=== PATIENT | male | born 1980 | race African-American/Black ===

== ENCOUNTER → 2020-06-11 14:39 | Outpatient (CLI) | payer OTHER, MEDICAID, SELFPAY ==
--- NOTE | 2020-06-11 14:46 | DI.RAD.S_ITS ---
PROCEDURE: XR HAND LT MIN 3V INDICATIONS: fall TECHNIQUE: 3 views of the hand(s) acquired. COMPARISON: None. FINDINGS: Bones: No fractures or dislocations. Carpal bones are normally aligned. No suspicious bony lesions. Soft tissues: No suspicious soft tissue calcifications. IMPRESSION: No acute osseous abnormality. Dictated by: Cedric Fuchs M.D. on 06/11/2020 at 14:13 Approved by: Cedric Fuchs M.D. on 06/11/2020 at 14:15
--- NOTE | 2020-06-11 14:46 | DI.RAD.S_ITS ---
PROCEDURE: XR KNEE RT 3V INDICATIONS: fall TECHNIQUE: 3 views of the knee were acquired. COMPARISON: None. FINDINGS: Bones: No fractures or dislocations. No suspicious bony lesions. Soft tissues: No joint effusion. No suspicious soft tissue calcifications. IMPRESSION: No acute osseous abnormality. Dictated by: Cedric Fuchs M.D. on 06/11/2020 at 14:15 Approved by: Cedric Fuchs M.D. on 06/11/2020 at 14:16
== END ==
PROVIDERS: Referring Provider Physician Assistant; Visit Provider Physician Assistant
DX: M25.561 Pain in right knee (principal); M79.642 Pain in left hand
CPT/HCPCS: 73130; 73562

== ENCOUNTER → 2020-06-24 16:35 | Outpatient (CLI) | payer OTHER, MEDICAID, SELFPAY ==
[2020-06-24] MEDS: COVID-19 VACC #1, MRNA(MOD) 100 MCG/0.5 ML VIAL IM (16:52)
== END ==
PROVIDERS: Visit Provider Internal Medicine
DX: Z23 Encounter for immunization (principal)
CPT/HCPCS: 0011A; 91301

== ENCOUNTER → 2020-07-22 14:09 | Outpatient (CLI) | payer OTHER, MEDICAID, SELFPAY ==
[2020-07-22] MEDS: COVID-19 VACC #2, MRNA(MOD) 100 MCG/0.5 ML VIAL IM (14:18)
== END ==
PROVIDERS: Visit Provider Internal Medicine
DX: Z23 Encounter for immunization (principal)
CPT/HCPCS: 0012A; 91301

== ENCOUNTER → 2020-08-03 18:38 | Outpatient (CLI) | payer OTHER, MEDICAID, SELFPAY ==
--- NOTE | 2020-08-03 18:41 | DI.MRI.S_ITS ---
PROCEDURE: MR KNEE RT WO CON INDICATIONS: UNSPECIFIED INTERNAL DERANGEMENT OF RIGHT KNEE TECHNIQUE: Noncontrast sagittal PD fast spin echo and T2 fast spin echo with fat saturation, sagittal 3-D FLASH with fat saturation; coronal T1 spin echo and PD fast spin echo with fat saturation, and axial PD fast spin echo with fat saturation through the knee. COMPARISON: [facility], CR, XR KNEE RT 3V, 06/11/2020, 14:53. FINDINGS: Menisci: Medial meniscus intact. Lateral meniscus intact. Cruciate ligaments: Anterior cruciate ligament appears intact. Posterior cruciate ligament appears intact. Medial structures: The medial collateral ligament appears thickened and T2 hyperintense. There is adjacent mild soft tissue edema. . Semimembranosus tendon appears intact. Visualized portions of the pes anserinus tendons appear normal. No abnormal bursal fluid. Lateral structures: The lateral collateral ligament demonstrates thickening and intrasubstance signal change in keeping with low grade sprain, statistically chronic, although technically age indeterminate. Biceps femoris tendon appears intact. Popliteus tendon grossly unremarkable. Iliotibial band appears intact. Anterior structures: Distal quadriceps tendinopathy and thickening is present. Medial and lateral patellofemoral ligaments intact. There is [id number] patellar tendinopathy. Prepatellar and superficial infrapatellar subcutaneous edema/fluid. Bones and cartilage: Marrow: No focal marrow contusion or discrete low signal fracture line. Medial compartment: No focal cartilage defect. Lateral compartment: Mild diffuse thinning of the femoral cartilage without focal defect. Tibial cartilage appears grossly intact. Patellofemoral compartment: Diffuse partial-thickness loss of the cartilage overlying the medial patellar facet. Femoral trochlear cartilage appears grossly intact. Joint space: No joint effusion. No Clifton's cyst. No specific evidence of intra-articular loose body. IMPRESSION: Medial collateral ligament sprain with adjacent soft tissue edema. No complete rupture Distal quadriceps and diffuse patellar tendinopathy. Mild adjacent fluid/edema Patellofemoral chondromalacia Dictated by: Neal Wade M.D. on 08/04/2020 at 9:27 Approved by: Neal Wade M.D. on 08/04/2020 at 9:31
== END ==
PROVIDERS: Referring Provider Orthopaedic Surgery; Visit Provider Orthopaedic Surgery
DX: M23.91 Unspecified internal derangement of right knee (principal); S83.411A Sprain of medial collateral ligament of right knee, initial encounter; M22.41 Chondromalacia patellae, right knee
CPT/HCPCS: 73721

== ENCOUNTER → 2021-05-14 11:08 | Outpatient (CLI) | payer OTHER, MEDICAID, SELFPAY ==
[2021-05-14 13:12] LABS: Add Manual Diff / Slide Review NO; Basophils Absolute Auto 0 /uL (0-100); Basophils Percent Auto 0.5 % (0-2); Eosinophils Absolute Auto 100 /uL (0-450); Eosinophils Percent Auto 1.6 % (2-4); Hematocrit 44.5 % (41-53); Lymphocytes Absolute Auto 1700 /uL (1100-4500); Lymphocytes Percent Auto 30.9 % (25-40); Mean Corpuscular HGB Conc 33.6 % (30-36); Mean Corpuscular Hemoglobin 26.1 PG (26-34); Mean Corpuscular Volume 77.7 fL (80-100); Monocytes Absolute Auto 400 /uL (0-900); Monocytes Percent Auto 6.4 % (3-14); Neutrophils Absolute Auto 3400 /uL (1500-7000); Neutrophils Percent Auto 60.6 % (50-75); Platelet Count 241 X10^3/uL (150-400); Red Blood Cell Count 5.73 X10^6/uL (4.5-5.9); Red Cell Distribution Width 14.6 % (11.6-14.8); White Blood Cell Count 5.6 X10^3/uL (4.5-11.0)
[2021-05-14 13:41] LABS: Alanine Aminotransferase 79 IU/L (<50); Albumin 4.9 g/dL (3.5-5.0); Albumin Globulin Ratio 1.3 (1.0-2.8); Alkaline Phosphatase 34 U/L (38-126); Aspartate Aminotransferase 53 IU/L (17-59); BUN Creatinine Ratio 11.7 (6-22); Blood Urea Nitrogen 14 mg/dL (9-20); Calcium 10.4 mg/dL (8.4-10.2); Carbon Dioxide 31 mmol/L (22-32); Chloride 103 mmol/L (98-107); Cholesterol 253 mg/dL (140-199); Estimated Glomerular Filt Rate > 60.0 mL/min (>60); Globulin 3.8 g/dL (1.7-4.1); Glucose 95 mg/dL (70-100); HDL Cholesterol 56 mg/dL (40-60); HEMOLYSIS < 15 (0-50); LDL Cholesterol Calculated 179 mg/dL (<100); Potassium 4.3 mmol/L (3.4-5.1); Sodium 142 mmol/L (137-145); Total Protein 8.7 g/dL (6.3-8.2); Triglycerides 91 mg/dL (35-150)
[2021-05-14 14:09] LABS: TSH w/ Reflex to FT4 2.14 uIU/mL (0.47-4.68)
== END ==
PROVIDERS: PCP Family Medicine; Referring Provider Family Medicine; Visit Provider Family Medicine
DX: F32.A Depression, unspecified (principal); F41.9 Anxiety disorder, unspecified; Z68.30 Body mass index [BMI] 30.0-30.9, adult
CPT/HCPCS: 36415; 80053; 80061; 84443; 85025

== ENCOUNTER → 2021-08-14 08:24 | Outpatient (CLI) | payer OTHER, MEDICAID, SELFPAY ==
[2021-08-14 10:44] LABS: Alanine Aminotransferase 27 IU/L (<50); Albumin 4.3 g/dL (3.5-5.0); Albumin Globulin Ratio 1.5 (1.0-2.8); Alkaline Phosphatase 39 U/L (38-126); Aspartate Aminotransferase 30 IU/L (17-59); BUN Creatinine Ratio 19.8 (6-22); Bilirubin Total 0.6 mg/dL (0.2-1.3); Blood Urea Nitrogen 23 mg/dL (9-20); Calcium 9.5 mg/dL (8.4-10.2); Carbon Dioxide 27 mmol/L (22-32); Chloride 107 mmol/L (98-107); Cholesterol 223 mg/dL (140-199); Estimated Glomerular Filt Rate > 60 mL/min (>60); Globulin 2.9 g/dL (1.7-4.1); Glucose 99 mg/dL (70-100); HDL Cholesterol 52 mg/dL (40-60); HEMOLYSIS < 15 (0-50); LDL Cholesterol Calculated 158 mg/dL (<100); Potassium 4.6 mmol/L (3.4-5.1); Sodium 139 mmol/L (137-145); Total Protein 7.2 g/dL (6.3-8.2); Triglycerides 65 mg/dL (35-150)
== END ==
PROVIDERS: PCP Family Medicine; Referring Provider Family Medicine; Visit Provider Family Medicine
DX: E78.5 Hyperlipidemia, unspecified (principal); F32.A Depression, unspecified; F41.9 Anxiety disorder, unspecified; R74.8 Abnormal levels of other serum enzymes
CPT/HCPCS: 36415; 80053; 80061

== ENCOUNTER → 2021-12-28 06:48 | Outpatient (CLI) | payer OTHER, MEDICAID, SELFPAY ==
--- NOTE | 2021-12-28 06:49 | DI.US.S_ITS ---
PROCEDURE: US SCROTUM INDICATIONS: RIGHT SCROTAL LUMP TECHNIQUE: Real-time scanning was performed of the scrotum and testicles, with image documentation. Color and pulse Doppler interrogation was performed of both testicles. COMPARISON: None. FINDINGS: Right: Testicle is normal in size at 4.8 x 1.8 x 3.2 cm, and homogenous in echotexture. Epididymis is normal in overall size. A few cysts are present at the epididymal tail, with this area appearing to correspond to the palpable finding indicated by the patient. The largest cyst measures 1.2 x 0.5 x 1.0 centimeters. No internal vascularity present in this area on Doppler images. No hydrocele or varicoceles. Overlying scrotal skin is normal in thickness. Left: Testicle is normal in size at 5.1 x 2.2 x 2.8 cm, and homogeneous in echotexture. Epididymis is normal in overall size and morphology. A 4 mm epididymal head cyst is present. No hydrocele or varicoceles. Overlying scrotal skin is normal in thickness. Doppler: Color and pulse Doppler demonstrate normal and symmetric arterial flow in both testicles. IMPRESSION: 1. A few cysts are present at the right epididymal tail, largest measuring 1.2 centimeters. This area appears to correspond to the palpable finding indicated by the patient. 2. No testicular mass visualized. Dictated by: Balta Hernández M.D. on 12/28/2021 at 8:55 Approved by: Balta Hernández M.D. on 12/28/2021 at 9:00
== END ==
PROVIDERS: PCP Family Medicine; Referring Provider Family Medicine; Visit Provider Family Medicine
DX: N50.3 Cyst of epididymis (principal); N50.89 Other specified disorders of the male genital organs
CPT/HCPCS: 76870; 93975

== ENCOUNTER → 2022-03-16 12:33 | Outpatient (CLI) | payer OTHER, MEDICAID, SELFPAY ==
--- NOTE | 2022-03-16 12:34 | DI.US.S_ITS ---
PROCEDURE: US SCROTUM INDICATIONS: RIGHT TESTICULAR PAIN 6 DAYS POST VASECTOMY TECHNIQUE: Real-time scanning was performed of the scrotum and testicles, with image documentation. Color and pulse Doppler interrogation was performed of both testicles. COMPARISON: [facility], , US SCROTUM, 12/28/2021, 6:52. FINDINGS: Right: Testicle is normal in size at 4.0 x 2.4 x 2.3 cm, and homogenous in echotexture. Epididymis is normal in overall size and morphology. Cyst within the epididymal tail is redemonstrated. There is a complex appearing hydrocele which measures 2.5 x 1.5 x 3.3 cm. There is no internal vascularity. Some internal septations are present. No varicoceles. Overlying scrotal skin is normal in thickness. Left: Testicle is normal in size at 3.5 x 1.8 x 2.1 cm, and homogeneous in echotexture. Epididymis is normal in overall size and morphology. A simple cyst is present within the left epididymis. No hydrocele or varicoceles. Overlying scrotal skin is normal in thickness. Doppler: Color and pulse Doppler demonstrate normal and symmetric arterial flow in both testicles. IMPRESSION: 1. Complex septated right hydrocele without internal vascularity suspicious for hematoma after recent vasectomy. No increased blood flow to suggest abscess. Dictated by: Shirley Marquez M.D. on 03/16/2022 at 13:29 Approved by: Shirley Marquez M.D. on 03/16/2022 at 13:31
== END ==
PROVIDERS: Family Provider Family Medicine; PCP Family Medicine; Referring Provider Family Medicine; Visit Provider Family Medicine
DX: N43.3 Hydrocele, unspecified (principal); N50.811 Right testicular pain; N50.3 Cyst of epididymis; Z98.52 Vasectomy status
CPT/HCPCS: 76870

== ENCOUNTER 2022-03-25 07:30 | Outpatient (RCR) | payer OTHER, MEDICAID, SELFPAY ==
--- NOTE | 2022-02-16 22:24 | PT.OIE ---
Current Diagnoses Sciatica, left side (02/16/22) Past Medical History (Last Updated 02/01/22 @ 10:09 by Kody Padilla MD) Anxiety and depression BMI 30.0-30.9,adult Epididymal cyst Hyperlipidemia No active medical problems Osteoarthritis of right knee Past Surgical History (Last Reviewed 11/25/21 @ 18:50 by DAO Ocasio) Anesthesia History of colonoscopy History of endoscopy (~2006) Visit Care Team Role Provider Type Kody Padilla MD Attending Provider Physician Family Provider Primary Care Provider Referring Provider Specialty: Family Practice Address: [address] [place] [address] Email: [email or web address] Physical Therapy Initial Evaluation PT-OP-A Visit Information Start: 02/14/22 12:49 Freq: Status: Active Protocol: Document 02/16/22 07:29 AMB (Rec: 02/16/22 08:24 AMB [id number]) Out-Patient Physical Therapy Visit Information Visit Information Visit Type Treatment Note Visit Start Time 07:30 Visit Stop Time 08:15 Total Visit Minutes 45 Visit Number 1 PT-OP-B Current Condition Start: 02/14/22 12:49 Freq: Status: Active Protocol: Document 02/16/22 07:29 AMB (Rec: 02/16/22 08:24 AMB [id number]) Current Condition History of Current Condition Onset Date Months Current Complaints L sciatica History of Current Condition Maninder reports L sided sciatica which he describes as a numb pain in calf and the lateral hip can hurt. If sitting for too long and then stands up can cause some back pain, but mostly concerned about L LE pain. Acupuncture is helping. Months ago he started forefoot running, and did have pain pretty much immediately and that's how it started. Tries to avoid sitting because of the pain. 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 Therapy/Recovery PT-OP-C Subjective Start: 02/14/22 12:49 Freq: Status: Active Protocol: Document 02/16/22 07:30 AMB (Rec: 02/16/22 11:00 AMB [id number]) Patient Questionnaires Oswestry Low Back Index Oswestry Score 24 Oswestry Impairment 20 to 39% Impaired (Score 20- 39) OP-PT Pain Assessment Comments Pain Comments 6/10 at calf, 2/10 at lateral thigh (L) PT-OP-J Posture/Palpation/Skin Start: 02/14/22 12:49 Freq: Status: Active Protocol: Document 02/16/22 07:30 AMB (Rec: 02/16/22 11:00 AMB [id number]) Palpation Assessment Location One Palpation Location lumbar Palpation Details PAs do not increase pt's pain, good spring. Tenderness over piriformis PT-OP-K Range of Motion Start: 02/14/22 12:49 Freq: Status: Active Protocol: Document 02/16/22 07:30 AMB (Rec: 02/16/22 11:00 AMB [id number]) Hip Goniometric Range of Motion Hip Right Passive Testing Position Supine Comments knee extension in 90 degrees hip flexion 145 Left Passive Straight Leg Raise 35 Comments knee extension in 90 degrees hi pflexion 125 PT-OP-L Special Tests Start: 02/14/22 12:49 Freq: Status: Active Protocol: Document 02/16/22 07:30 AMB (Rec: 02/16/22 11:00 AMB [id number]) Special Tests Neural Special Tests- Lower Body Sciatic Nerve Tension Test Results L + Comments ankle dorsiflexion and inversion increases PT-OP-M Strength Start: 02/14/22 12:49 Freq: Status: Active Protocol: Document 02/16/22 07:30 AMB (Rec: 02/16/22 11:01 AMB [id number]) Ankle/Foot Strength Ankle and Foot Manual Muscle Testing Left Comments PF appears equal to R when testing in supine, no increase in pain with resisted PF PT-OP-Q Treatments Start: 02/14/22 12:49 Freq: Status: Active Protocol: Document 02/16/22 07:30 AMB (Rec: 02/16/22 16:06 AMB [id number]) Therapeutic Exercises Supine Exercises sciatic n glide Side left Reps/Minutes 5x20 piriformis stretch Side left Reps/Minutes 30x2 Prone Exercises prone press up Reps/Minutes 10x3 PT-OP-T Assessment and Plan Start: 02/14/22 12:49 Freq: Status: Active Protocol: Document 02/16/22 07:30 AMB (Rec: 02/21/22 22:24 [facility] [id number]) Physical Therapy Assessment Rehab Potential Rehabilitation Potential Good Evaluation Complexity Number of Personal Factors/Comorbidities 0 Number of Body Systems Impaired 1-2 Clinical Presentation at Evaluation Stable Impairments Impairments Activity Tolerance,Functional Activities,Pain,ROM,Strength Goals Three Impairment Exercise Short Term Goal (STG) Maninder will be independent with a HEP to improve his ROM and reduce his pain. STG Duration 6 weeks Custodial Goal (LTG) Maninder will return to exercise (running short distances) without an increase in lower extremity pain. LTG Duration 12 weeks Two Short Term Goal (STG) Maninder will sit for 30 minutes without an increase in pain. STG Duration 6 weeks Custodial Goal (LTG) Maninder will move from sit to stand without an icnrease in pain. LTG Duration 12 weeks One Impairment ROM Short Term Goal (STG) Maninder will increase his L SLR to at least 55 degrees. STG Duration 6 weeks LTG Duration 12 weeks Assessment Summary Assessment Maninder attends physical therapy with slowly improving L LE nerve impingment sx. We were not able to reproduce his sx with lumbar provocations, and he was happy to know that resisted plantarflexion was equal and did not reproduce his pain. However SLR, piriformis stretching and palpation over the sciatic n at the gluteals all reproduced n pain felt in his left calf. He is quite tight and has had to restrict his exercise and his sitting due to his nerve pain. He will benefit from physical therapy to reduce the irritibility of his L LE nerves so that he can perform his work duties, exercise and sit with less pain. Physical Therapy Plan Frequency and Duration Frequency of Treatment 2x/Week Duration of treatment (weeks) 12 Plan of Care Start Date 02/16/22 Plan of Care End Date 05/11/22 Therapeutic Interventions Therapeutic Interventions Aquatic Therapy,Home Exercise Program,Joint Mobilizations, Manual Therapy,Neuromuscular Re-education,Self-Care/Home Management,Therapeutic Activities,Therapeutic Exercises Modalities Cold Pack/Ice Massage,Electric Stimulation,Hot Packs, Ultrasound Next Visit Focus/Plan Next Note Type Treatment Note Next Visit Plan Review HEP: piriformis stretch, sciatic n glide, prone press up
--- NOTE | 2022-02-16 22:25 | PT.OPPOC ---
Physical, Occupational & Speech Therapy At [facility] Current Diagnoses Sciatica, left side (02/16/22) Visit Care Team Role Provider Type Kody Padilla MD Attending Provider Physician Family Provider Primary Care Provider Referring Provider Specialty: Family Practice Address: [address] [place] [address], [id number] Email: [email or web address] Plan Of Care PT-OP-T Assessment and Plan Start: 02/14/22 12:49 Freq: Status: Active Protocol: Document 02/16/22 07:30 AMB (Rec: 02/21/22 22:24 AMB [id number]) Physical Therapy Assessment Rehab Potential Rehabilitation Potential Good Evaluation Complexity Number of Personal Factors/Comorbidities 0 Number of Body Systems Impaired 1-2 Clinical Presentation at Evaluation Stable Impairments Impairments Activity Tolerance,Functional Activities,Pain,ROM,Strength Goals Three Impairment Exercise Short Term Goal (STG) Maninder will be independent with a HEP to improve his ROM and reduce his pain. STG Duration 6 weeks Prison Goal (LTG) Maninder will return to exercise (running short distances) without an increase in lower extremity pain. LTG Duration 12 weeks Two Short Term Goal (STG) Maninder will sit for 30 minutes without an increase in pain. STG Duration 6 weeks Prison Goal (LTG) Maninder will move from sit to stand without an icnrease in pain. LTG Duration 12 weeks One Impairment ROM Short Term Goal (STG) Maninder will increase his L SLR to at least 55 degrees. STG Duration 6 weeks LTG Duration 12 weeks Assessment Summary Assessment Maninder attends physical therapy with slowly improving L LE nerve impingment sx. We were not able to reproduce his sx with lumbar provocations, and he was happy to know that resisted plantarflexion was equal and did not reproduce his pain. However SLR, piriformis stretching and palpation over the sciatic n at the gluteals all reproduced n pain felt in his left calf. He is quite tight and has had to restrict his exercise and his sitting due to his nerve pain. He will benefit from physical therapy to reduce the irritibility of his L LE nerves so that he can perform his work duties, exercise and sit with less pain. Physical Therapy Plan Frequency and Duration Frequency of Treatment 2x/Week Duration of treatment (weeks) 12 Plan of Care Start Date 02/16/22 Plan of Care End Date 05/11/22 Therapeutic Interventions Therapeutic Interventions Aquatic Therapy,Home Exercise Program,Joint Mobilizations, Manual Therapy,Neuromuscular Re-education,Self-Care/Home Management,Therapeutic Activities,Therapeutic Exercises Modalities Cold Pack/Ice Massage,Electric Stimulation,Hot Packs, Ultrasound Next Visit Focus/Plan Next Note Type Treatment Note Next Visit Plan Review HEP: piriformis stretch, sciatic n glide, prone press up Plan of Care Dates Plan of Care Start Date 02/16/22 Plan of Care End Date 05/11/22 Electronically Signed by: Princess Hein, PT 02/21/22 [id number] If you are in agreement with this Plan of Care, please return a signed and dated copy. I have reviewed this Plan of Care and certify that the skilled therapy services above are required to meet the patient?s needs. Physician Signature Date Printed Name and Credentials Clinical Instructor Signature Printed Name and Credentials
--- NOTE | 2022-03-01 11:16 | PT.OTN ---
Current Diagnoses Sciatica, left side (03/01/22) Physical Therapy Treatment Note PT-OP-A Visit Information Start: 02/14/22 12:49 Freq: Status: Active Protocol: Document 03/01/22 07:32 AMB (Rec: 03/01/22 08:25 AMB [id number]) Out-Patient Physical Therapy Visit Information Visit Information Visit Type Treatment Note Visit Start Time 07:30 Visit Stop Time 08:15 Total Visit Minutes 45 Visit Number 2 PT-OP-B Current Condition Start: 02/14/22 12:49 Freq: Status: Active Protocol: Document 02/16/22 07:29 AMB (Rec: 02/16/22 08:24 AMB [id number]) Current Condition History of Current Condition Onset Date Months Current Complaints L sciatica History of Current Condition Maninder reports L sided sciatica which he describes as a numb pain in calf and the lateral hip can hurt. If sitting for too long and then stands up can cause some back pain, but mostly concerned about L LE pain. Acupuncture is helping. Months ago he started forefoot running, and did have pain pretty much immediately and that's how it started. Tries to avoid sitting because of the pain. 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 Tenderness over piriformis PT-OP-K Range of Motion Start: 02/14/22 12:49 Freq: Status: Active Protocol: Document 02/16/22 07:30 AMB (Rec: 02/16/22 11:00 AMB [id number]) Hip Goniometric Range of Motion Hip Right Passive Testing Position Supine Comments knee extension in 90 degrees hip flexion 145 Left Passive Straight Leg Raise 35 Comments knee extension in 90 degrees hi pflexion 125 PT-OP-L Special Tests Start: 02/14/22 12:49 Freq: Status: Active Protocol: Document 02/16/22 07:30 AMB (Rec: 02/16/22 11:00 AMB [id number]) Special Tests Neural Special Tests- Lower Body Sciatic Nerve Tension Test Results L + Comments ankle dorsiflexion and inversion increases PT-OP-M Strength Start: 02/14/22 12:49 Freq: Status: Active Protocol: Document 02/16/22 07:30 AMB (Rec: 02/16/22 11:01 AMB [id number]) Ankle/Foot Strength Ankle and Foot Manual Muscle Testing Left Comments PF appears equal to R when testing in supine, no increase in pain with resisted PF PT-OP-Q Treatments Start: 02/14/22 12:49 Freq: Status: Active Protocol: Document 03/01/22 07:32 AMB (Rec: 03/01/22 08:25 AMB [id number]) Therapeutic Exercises Supine Exercises sciatic n glide Side left Reps/Minutes 5x20 piriformis stretch Side left Reps/Minutes 30x2 Prone Exercises prone press up Reps/Minutes 10x3 Sidelying Exercises hip abd Reps/Minutes 2x10 Standing Exercises hamstring stretch Reps/Minutes 30x2 Comments stair calf stretch Standing Exercise Name on LUZMARIA Reps/Minutes 30x2 Other Exercises cat cow Reps/Minutes 10 Comments better ppt than anterior pelvic tilt linwood pose Reps/Minutes 30x2 quadruped Other Exercise Name UE/LE extension Reps/Minutes 2x10 Comments cued lumbar neutral Neuro Re-Education Treatment Balance Activities Balance board Reps/Duration 1 min PT-OP-T Assessment and Plan Start: 02/14/22 12:49 Freq: Status: Active Protocol: Document 03/01/22 07:30 AMB (Rec: 03/01/22 11:16 AMB [id number]) Physical Therapy Assessment Goals Three Impairment Exercise Short Term Goal (STG) Maninder will be independent with a HEP to improve his ROM and reduce his pain. STG Duration 6 weeks Longterm Goal (LTG) Maninder will return to exercise (running short distances) without an increase in lower extremity pain. LTG Duration 12 weeks Two Short Term Goal (STG) Maninder will sit for 30 minutes without an increase in pain. STG Duration 6 weeks Sandwich Wrapper Goal (LTG) Maninder will move from sit to stand without an icnrease in pain. LTG Duration 12 weeks One Impairment ROM Short Term Goal (STG) Maninder will increase his L SLR to at least 55 degrees. STG Duration 6 weeks LTG Duration 12 weeks Assessment Summary Assessment Maninder continues to have pain when he has been sitting and then tries to stand up from a seated position. Discussed body mechanics of work situation. 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 Discussed return to exercise progression, waiting on running for now to avoid flare . Physical Therapy Plan Frequency and Duration Frequency of Treatment 2x/Week Duration of treatment (weeks) 12 Plan of Care Start Date 02/16/22 Plan of Care End Date 05/11/22 Therapeutic Interventions Therapeutic Interventions Aquatic Therapy,Home Exercise Program,Joint Mobilizations, Manual Therapy,Neuromuscular Re-education,Self-Care/Home Management,Therapeutic Activities,Therapeutic Exercises Modalities Cold Pack/Ice Massage,Electric Stimulation,Hot Packs, Ultrasound Next Visit Focus/Plan Next Note Type Treatment Note Next Visit Plan Review HEP: piriformis stretch, sciatic n glide, prone press up
--- NOTE | 2022-03-08 10:25 | PT.OTN ---
Current Diagnoses Sciatica, left side (03/08/22) Physical Therapy Treatment Note PT-OP-A Visit Information Start: 02/14/22 12:49 Freq: Status: Active Protocol: Document 03/08/22 07:28 AMB (Rec: 03/08/22 08:21 AMB [id number]) Out-Patient Physical Therapy Visit Information Visit Information Visit Type Treatment Note Visit Start Time 07:30 Visit Stop Time 08:15 Total Visit Minutes 45 Visit Number 3 PT-OP-B Current Condition Start: 02/14/22 12:49 Freq: Status: Active Protocol: Document 02/16/22 07:29 AMB (Rec: 02/16/22 08:24 AMB [id number]) Current Condition History of Current Condition Onset Date Months Current Complaints L sciatica History of Current Condition Maninder reports L sided sciatica which he describes as a numb pain in calf and the lateral hip can hurt. If sitting for too long and then stands up can cause some back pain, but mostly concerned about L LE pain. Acupuncture is helping. Months ago he started forefoot running, and did have pain pretty much immediately and that's how it started. Tries to avoid sitting because of the pain. 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 PT-OP-J Posture/Palpation/Skin Start: 02/14/22 12:49 Freq: Status: Active Protocol: Document 02/16/22 07:30 AMB (Rec: 02/16/22 11:00 AMB [id number]) Palpation Assessment Location One Palpation Location lumbar Palpation Details PAs do not increase pt's pain, good spring. Tenderness over piriformis PT-OP-K Range of Motion Start: 02/14/22 12:49 Freq: Status: Active Protocol: Document 02/16/22 07:30 AMB (Rec: 02/16/22 11:00 AMB [id number]) Hip Goniometric Range of Motion Hip Right Passive Testing Position Supine Comments knee extension in 90 degrees hip flexion 145 Left Passive Straight Leg Raise 35 Comments knee extension in 90 degrees hi pflexion 125 PT-OP-L Special Tests Start: 02/14/22 12:49 Freq: Status: Active Protocol: Document 02/16/22 07:30 AMB (Rec: 02/16/22 11:00 AMB [id number]) Special Tests Neural Special Tests- Lower Body Sciatic Nerve Tension Test Results L + Comments ankle dorsiflexion and inversion increases PT-OP-M Strength Start: 02/14/22 12:49 Freq: Status: Active Protocol: Document 02/16/22 07:30 AMB (Rec: 02/16/22 11:01 AMB [id number]) Ankle/Foot Strength Ankle and Foot Manual Muscle Testing Left Comments PF appears equal to R when testing in supine, no increase in pain with resisted PF PT-OP-Q Treatments Start: 02/14/22 12:49 Freq: Status: Active Protocol: Document 03/08/22 07:28 AMB (Rec: 03/08/22 08:21 AMB [id number]) Gym Equipment Shuttle Recovery Unilateral Squats Details 50 (L) Shuttle Recovery Platform Unstable Bilateral Squats Details 100 Shuttle Recovery Platform Stable Reps/Time 2x10 Therapeutic Exercises Supine Exercises IT band stretch Supine Exercise Name band Reps/Minutes 2x10 sciatic n glide Side left Reps/Minutes 5x20 piriformis stretch Side left Reps/Minutes 30x2 Sitting Exercises BAPS board Sitting Exercise Name L foot Reps/Minutes 2x10 Comments circles PT-OP-T Assessment and Plan Start: 02/14/22 12:49 Freq: Status: Active Protocol: Document 03/08/22 07:28 AMB (Rec: 03/08/22 08:21 AMB [id number]) Physical Therapy Assessment Goals Three Impairment Exercise Short Term Goal (STG) Maninder will be independent with a HEP to improve his ROM and reduce his pain. STG Duration 6 weeks Fire Watcher Goal (LTG) Maninder will return to exercise (running short distances) without an increase in lower extremity pain. LTG Duration 12 weeks Two Short Term Goal (STG) Maninder will sit for 30 minutes without an increase in pain. STG Duration 6 weeks Fire Watcher Goal (LTG) Maninder will move from sit to stand without an icnrease in pain. LTG Duration 12 weeks One Impairment ROM Short Term Goal (STG) Maninder will increase his L SLR to at least 55 degrees. STG Duration 6 weeks LTG Duration 12 weeks Assessment Summary Assessment Maninder felt a good stretch with 3 way hamstring/IT band stretch. Feeling more sx in lateral ankle, overall feeling better is returning to the gym but gently. Did have mild sx after leg press here. Physical Therapy Plan Frequency and Duration Frequency of Treatment 2x/Week Duration of treatment (weeks) 12 Plan of Care Start Date 02/16/22 Plan of Care End Date 05/11/22 Therapeutic Interventions Therapeutic Interventions Aquatic Therapy,Home Exercise Program,Joint Mobilizations, Manual Therapy,Neuromuscular Re-education,Self-Care/Home Management,Therapeutic Activities,Therapeutic Exercises Modalities Cold Pack/Ice Massage,Electric Stimulation,Hot Packs, Ultrasound Next Visit Focus/Plan Next Note Type Treatment Note Next Visit Plan Review HEP: piriformis stretch, sciatic n glide, prone press up
--- NOTE | 2022-03-22 08:20 | PT.OTN ---
Current Diagnoses Sciatica, left side (03/22/22) Physical Therapy Treatment Note PT-OP-A Visit Information Start: 02/14/22 12:49 Freq: Status: Active Protocol: Document 03/22/22 07:28 SP (Rec: 03/22/22 08:21 SP [id number]) Out-Patient Physical Therapy Visit Information Visit Information Visit Type Treatment Note Visit Start Time 07:30 Visit Stop Time 08:20 Total Visit Minutes 50 Visit Number 4 Number of BULB BRANDER Visits 1 PT-OP-B Current Condition Start: 02/14/22 12:49 Freq: Status: Active Protocol: Document 02/16/22 07:29 AMB (Rec: 02/16/22 08:24 AMB [id number]) Current Condition History of Current Condition Onset Date Months Current Complaints L sciatica History of Current Condition Maninder reports L sided sciatica which he describes as a numb pain in calf and the lateral hip can hurt. If sitting for too long and then stands up can cause some back pain, but mostly concerned about L LE pain. Acupuncture is helping. Months ago he started forefoot running, and did have pain pretty much immediately and that's how it started. Tries to avoid sitting because of the pain. 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 But if sits in a chair with edge mid posterior thigh that (wood home chair) within some time puts pressure (more legs dangling than not) and deadens leg eventually and can get cramp in posterior thigh. Is mindful of sitting in fully supported femurs. Pt did have a vasectomy since last tx and still having inflammation more R>L. He feels might only need the next appt and potentially DC from PT next tx with PT. He did also see aviation tactical readiness officer as well with PT and feels that has also been an source of progress. Is able to squat with UE supported. PT-OP-J Posture/Palpation/Skin Start: 02/14/22 12:49 Freq: Status: Active Protocol: Document 02/16/22 07:30 AMB (Rec: 02/16/22 11:00 AMB [id number]) Palpation Assessment Location One Palpation Location lumbar Palpation Details PAs do not increase pt's pain, good spring. Tenderness over piriformis PT-OP-K Range of Motion Start: 02/14/22 12:49 Freq: Status: Active Protocol: Document 02/16/22 07:30 AMB (Rec: 02/16/22 11:00 AMB [id number]) Hip Goniometric Range of Motion Hip Right Passive Testing Position Supine Comments knee extension in 90 degrees hip flexion 145 Left Passive Straight Leg Raise 35 Comments knee extension in 90 degrees hi pflexion 125 PT-OP-L Special Tests Start: 02/14/22 12:49 Freq: Status: Active Protocol: Document 02/16/22 07:30 AMB (Rec: 02/16/22 11:00 AMB [id number]) Special Tests Neural Special Tests- Lower Body Sciatic Nerve Tension Test Results L + Comments ankle dorsiflexion and inversion increases PT-OP-M Strength Start: 02/14/22 12:49 Freq: Status: Active Protocol: Document 02/16/22 07:30 AMB (Rec: 02/16/22 11:01 AMB [id number]) Ankle/Foot Strength Ankle and Foot Manual Muscle Testing Left Comments PF appears equal to R when testing in supine, no increase in pain with resisted PF PT-OP-Q Treatments Start: 02/14/22 12:49 Freq: Status: Active Protocol: Document 03/22/22 07:28 SP (Rec: 03/22/22 08:21 SP [id number]) Therapeutic Exercises Supine Exercises IT band stretch Supine Exercise Name band Reps/Minutes 2x10 Comments unable to do at moment dueto vasectomy recovery sciatic n glide Side left Reps/Minutes 5x20 Comments feels normal piriformis stretch Side left Reps/Minutes 30x2 Sidelying Exercises hip abd Sidelying Exercise Name reviewed- good form Resistance AROM Reps/Minutes 2x10 Comments good form easy Standing Exercises squat mechanics Standing Exercise Name improved hip hinge, knees behind toe Equipment Used air squat, discussed facing wall mini and progress. Comments can squat all way floor but BUEs out front, board under heels better/hipsbk standing self STMs\ Standing Exercise Name discussed but not performed band walk Standing Exercise Name added to HEP: f/b/lateral Resistance TB #3 loop at ankles Equipment Used near rail, not needed Reps/Minutes 10 ft x3 laps Comments cued tall posture, soft knee, neutral pelvis RDL Standing Exercise Name added to HEP: hip abd/core fac , form for back health Side bilateral Reps/Minutes x10 Comments Cued straight back, hip hinge, space between BLEs- improved mechanics Resisted shld ext Standing Exercise Name added to HEP Resistance Tb #3+#4 Reps/Minutes 2x10 reps Comments cued tall posture core fac, better facilitation with increase resistance calf stretch Standing Exercise Name on LUZMARIA Reps/Minutes 30x2 Self-Care/Home Management Treatment Education Patient Education Body Mechanics,Pain Management ,Posture,Safety Other Education Extra time spent lifting mechanics at gym with allowable ankle/hip/back ROM/ flexibility and safe resistance. May need to put plate under heels for now. Also suggested site Knees Over Toes AROM to start progress increase flexibility if deciding to DC to own HEP next tx. PT-OP-T Assessment and Plan Start: 02/14/22 12:49 Freq: Status: Active Protocol: Document 03/22/22 07:28 SP (Rec: 03/22/22 08:21 SP [id number]) Physical Therapy Assessment Goals Three Impairment Exercise Short Term Goal (STG) Maninder will be independent with a HEP to improve his ROM and reduce his pain. 03/22/22: added RDL, band walk , resisted band walk, calf stretches, review supine stretching. Time spent lifting mechanics at gym for back health and discussion may have decreased ROM ankles/hips/ back tight. STG Duration 6 weeks progressing 03/22/22 Rn Community Goal (LTG) Maninder will return to exercise (running short distances) without an increase in lower extremity pain. 03/22/22: progressing: did do a little jog to go help someone and no feeling L leg was going to give out and hop off something and pivot on L leg and didn't give out. Otherwise hasn't done any since vasectomy procedure . LTG Duration 12 weeks progressin03/22/22 Two Short Term Goal (STG) Maninder will sit for 30 minutes without an increase in pain. 03/22/22: MET GOAL: can sit in chair and fall asleep with pain. STG Duration MET goal Rn Community Goal (LTG) Maninder will move from sit to stand without an icnrease in pain. 03/22/22: MET GOAL: painfree STS. LTG Duration MET GOAL One Impairment ROM Short Term Goal (STG) Maninder will increase his L SLR to at least 55 degrees. 03/22/22: LLE 85 deg, RLE 75 deg STG Duration MET GOAL LTG Duration 12 weeks Progress Towards Goals Progress Towards Goals Progressing Toward Goals Progress Comments MET GOAL: STGs #1 and STG/ LTG #2. Assessment Summary Assessment Pt improved decrease pain in LLE with activities. Has been limited in HEP due to recovering vasectomy procedure . Improved/ responded well to stretching review, core/hip abd strengthening added: band walk, RDL, resisted shld ext this tx and gym lifting mechanics for back health. Physical Therapy Plan Frequency and Duration Frequency of Treatment 2x/Week Duration of treatment (weeks) 12 Plan of Care Start Date 02/16/22 Plan of Care End Date 05/11/22 Therapeutic Interventions Therapeutic Interventions Aquatic Therapy,Home Exercise Program,Joint Mobilizations, Manual Therapy,Neuromuscular Re-education,Self-Care/Home Management,Therapeutic Activities,Therapeutic Exercises Modalities Cold Pack/Ice Massage,Electric Stimulation,Hot Packs, Ultrasound Next Visit Focus/Plan Next Note Type Treatment Note Next Visit Plan Discuss more appts vs self HEP home? Recheck new HEP: RDL, band walk, check mechanics lifting, core resisted shld ext and add any progression. Strethching HEP: piriformis stretch, sciatic n glide, recheck prone press up
--- NOTE | 2022-03-25 08:08 | PT.OTN ---
Current Diagnoses Sciatica, left side (03/25/22) Physical Therapy Treatment Note PT-OP-A Visit Information Start: 02/14/22 12:49 Freq: Status: Active Protocol: Document 03/25/22 07:32 AMB (Rec: 03/25/22 08:07 AMB [id number]) Out-Patient Physical Therapy Visit Information Visit Information Visit Type Treatment Note Visit Start Time 07:30 Visit Stop Time 08:20 Total Visit Minutes 50 Visit Number 5 PT-OP-B Current Condition Start: 02/14/22 12:49 Freq: Status: Active Protocol: Document 02/16/22 07:29 AMB (Rec: 02/16/22 08:24 AMB [id number]) Current Condition History of Current Condition Onset Date Months Current Complaints L sciatica History of Current Condition Maninder reports L sided sciatica which he describes as a numb pain in calf and the lateral hip can hurt. If sitting for too long and then stands up can cause some back pain, but mostly concerned about L LE pain. Acupuncture is helping. Months ago he started forefoot running, and did have pain pretty much immediately and that's how it started. Tries to avoid sitting because of the pain. 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 Tenderness over piriformis PT-OP-K Range of Motion Start: 02/14/22 12:49 Freq: Status: Active Protocol: Document 02/16/22 07:30 AMB (Rec: 02/16/22 11:00 AMB [id number]) Hip Goniometric Range of Motion Hip Right Passive Testing Position Supine Comments knee extension in 90 degrees hip flexion 145 Left Passive Straight Leg Raise 35 Comments knee extension in 90 degrees hi pflexion 125 PT-OP-L Special Tests Start: 02/14/22 12:49 Freq: Status: Active Protocol: Document 02/16/22 07:30 AMB (Rec: 02/16/22 11:00 AMB [id number]) Special Tests Neural Special Tests- Lower Body Sciatic Nerve Tension Test Results L + Comments ankle dorsiflexion and inversion increases PT-OP-M Strength Start: 02/14/22 12:49 Freq: Status: Active Protocol: Document 02/16/22 07:30 AMB (Rec: 02/16/22 11:01 AMB [id number]) Ankle/Foot Strength Ankle and Foot Manual Muscle Testing Left Comments PF appears equal to R when testing in supine, no increase in pain with resisted PF PT-OP-Q Treatments Start: 02/14/22 12:49 Freq: Status: Active Protocol: Document 03/25/22 07:32 AMB (Rec: 03/25/22 08:07 AMB [id number]) Therapeutic Exercises Standing Exercises squat mechanics Standing Exercise Name improved hip hinge, knees behind toe Equipment Used 10#, discussed facing wall mini and progress. Comments can squat all way floor but BUEs out front, board under heels better/hipsbk RDL Standing Exercise Name added to HEP: hip abd/core fac , form for back health Side bilateral Reps/Minutes x10, Comments Cued straight back, hip hinge, space between BLEs- improved mechanics calf stretch Standing Exercise Name on LUZMARIA Reps/Minutes 30x2 PT-OP-T Assessment and Plan Start: 02/14/22 12:49 Freq: Status: Active Protocol: Document 03/25/22 07:32 AMB (Rec: 03/25/22 08:07 AMB [id number]) Physical Therapy Assessment Goals Three Impairment Exercise Short Term Goal (STG) Maninder will be independent with a HEP to improve his ROM and reduce his pain. 03/22/22: added RDL, band walk , resisted band walk, calf stretches, review supine stretching. Time spent lifting mechanics at gym for back health and discussion may have decreased ROM ankles/hips/ back tight. STG Duration 6 weeks progressing 03/22/22 Ordering Machine Operator Goal (LTG) Maninder will return to exercise (running short distances) without an increase in lower extremity pain. 03/22/22: progressing: did do a little jog to go help someone and no feeling L leg was going to give out and hop off something and pivot on L leg and didn't give out. Otherwise hasn't done any since vasectomy procedure . LTG Duration 12 weeks progressin03/22/22 Two Short Term Goal (STG) Maninder will sit for 30 minutes without an increase in pain. 03/22/22: MET GOAL: can sit in chair and fall asleep with pain. STG Duration MET goal Ordering Machine Operator Goal (LTG) Maninder will move from sit to stand without an icnrease in pain. 03/22/22: MET GOAL: painfree STS. LTG Duration MET GOAL One Impairment ROM Short Term Goal (STG) Maninder will increase his L SLR to at least 55 degrees. 03/22/22: LLE 85 deg, RLE 75 deg STG Duration MET GOAL Assessment Summary Assessment Maninder feels ready for discharge. He is able to work and sit without the radiating back pain he was previously having. He has not yet returned to running or the gym , but extensive time spent today with discussion of how to return to running gym exercise. Physical Therapy Plan Frequency and Duration Duration of treatment (weeks) 12 Plan of Care Start Date 02/16/22 Plan of Care End Date 05/11/22 Therapeutic Interventions Therapeutic Interventions Aquatic Therapy,Home Exercise Program,Joint Mobilizations, Manual Therapy,Neuromuscular Re-education,Self-Care/Home Management,Therapeutic Activities,Therapeutic Exercises Modalities Cold Pack/Ice Massage,Electric Stimulation,Hot Packs, Ultrasound Discharge Physical Therapy Discharge Reasons Goals Met
== END 2022-04-05 09:09 | disposition home or self-care (01) ==
LOC: PHYS 07:30
PROVIDERS: Family Provider Family Medicine; PCP Family Medicine; Referring Provider Family Medicine; Visit Provider Family Medicine
DX: M54.32 Sciatica, left side (principal)
CPT/HCPCS: 97110; 97161; 97535

== ENCOUNTER → 2022-05-17 13:35 | Outpatient (CLI) | payer OTHER, MEDICAID, SELFPAY ==
[2022-05-17 14:40] LABS: Semen Sperm Prescence Post-Vas Absent (ABSENT)
== END ==
PROVIDERS: Family Provider Family Medicine; PCP Family Medicine; Referring Provider Family Medicine; Visit Provider Family Medicine
DX: N50.3 Cyst of epididymis (principal); Z30.2 Encounter for sterilization
CPT/HCPCS: 89321

== ENCOUNTER → 2023-04-07 08:26 | Outpatient (CLI) | payer OTHER, SELFPAY ==
[2023-04-07 08:40] LABS: Add Manual Diff / Slide Review NO; Basophils Absolute Auto 0 /uL (0-100); Basophils Percent Auto 0.6 % (0-2); Eosinophils Absolute Auto 200 /uL (0-450); Eosinophils Percent Auto 3.2 % (2-4); Hematocrit 42.3 % (41-53); Lymphocytes Absolute Auto 1300 /uL (1100-4500); Mean Corpuscular HGB Conc 33.1 % (30-36); Mean Corpuscular Hemoglobin 26.5 PG (26-34); Mean Corpuscular Volume 80.1 fL (80-100); Monocytes Absolute Auto 400 /uL (0-900); Monocytes Percent Auto 7.5 % (3-14); Neutrophils Absolute Auto 3000 /uL (1500-7000); Neutrophils Percent Auto 61.7 % (50-75); Platelet Count 223 X10^3/uL (150-400); Red Blood Cell Count 5.28 X10^6/uL (4.5-5.9); Red Cell Distribution Width 14.4 % (11.6-14.8); White Blood Cell Count 4.8 X10^3/uL (4.5-11.0)
[2023-04-07 09:05] LABS: Alanine Aminotransferase 30 IU/L (<50); Albumin 4.4 g/dL (3.5-5.0); Albumin Globulin Ratio 1.2 (1.0-2.8); Alkaline Phosphatase 36 U/L (38-126); Aspartate Aminotransferase 41 IU/L (17-59); BUN Creatinine Ratio 10.3 (6-22); Bilirubin Total 0.9 mg/dL (0.2-1.3); Blood Urea Nitrogen 12 mg/dL (9-20); Carbon Dioxide 32 mmol/L (22-32); Chloride 104 mmol/L (98-107); Cholesterol 236 mg/dL (140-199); Estimated Glomerular Filt Rate > 60 mL/min (>60); Globulin 3.8 g/dL (1.7-4.1); Glucose 105 mg/dL (70-100); HDL Cholesterol 55 mg/dL (40-60); HEMOLYSIS < 15 (0-50); LDL Cholesterol Calculated 169 mg/dL (<100); Potassium 4.6 mmol/L (3.4-5.1); Sodium 140 mmol/L (137-145); Total Protein 8.2 g/dL (6.3-8.2); Triglycerides 60 mg/dL (35-150)
[2023-04-07 09:43] LABS: TSH w/ Reflex to FT4 2.02 uIU/mL (0.47-4.68)
[2023-04-07 09:51] LABS: Vitamin B12 627 pg/mL (239-931)
== END ==
PROVIDERS: Family Provider Family Medicine; PCP Family Medicine; Referring Provider Family Medicine; Visit Provider Family Medicine
DX: E78.5 Hyperlipidemia, unspecified (principal); M54.30 Sciatica, unspecified side; F41.9 Anxiety disorder, unspecified; F32.A Depression, unspecified; Z68.30 Body mass index [BMI] 30.0-30.9, adult; Z00.00 Encounter for general adult medical examination without abnormal findings
CPT/HCPCS: 36415; 80053; 80061; 82607; 84443; 85025

== ENCOUNTER → 2023-05-02 16:37 | Outpatient (CLI) | payer OTHER, SELFPAY ==
--- NOTE | 2023-05-02 16:39 | DI.RAD.S_ITS ---
PROCEDURE: XR CERVICAL SPINE 2V OR 3V INDICATIONS: neck pain TECHNIQUE: 3 view(s) of the cervical spine were acquired. COMPARISON: None. FINDINGS: Bones: No fractures or dislocations to the T1 level. There is straightening of normal cervical lordosis. Degenerative endplate changes are noted at C6-7 level. The lateral masses of C1 appear intact on the odontoid view. No suspicious bony lesions. Soft tissues: No prevertebral soft tissue swelling. IMPRESSION: Degenerative disc disease at C6-7 level. No acute fracture or dislocation. Straightening of normal cervical lordosis which could represent muscle spasm. Dictated by: Carlos Cadet M.D. on 05/02/2023 at 17:13 Approved by: Carlos Cadet M.D. on 05/02/2023 at 17:14
--- NOTE | 2023-05-02 16:39 | DI.RAD.S_ITS ---
PROCEDURE: XR HAND LT MIN 3V INDICATIONS: thumb and index finger trauma TECHNIQUE: 3 views of the hand(s) acquired. COMPARISON: [facility], CR, XR HAND LT MIN 3V, 06/11/2020, 14:53. FINDINGS: Bones: No fractures or dislocations. Carpal bones are normally aligned. No suspicious bony lesions. Soft tissues: No suspicious soft tissue calcifications. IMPRESSION: No acute left hand fracture or dislocation. Dictated by: Carlos Cadet M.D. on 05/02/2023 at 17:13 Approved by: Carlos Cadet M.D. on 05/02/2023 at 17:13
== END ==
PROVIDERS: Family Provider Family Medicine; PCP Family Medicine; Referring Provider Family Medicine; Visit Provider Family Medicine
DX: M50.323 Other cervical disc degeneration at C6-C7 level (principal); M79.645 Pain in left finger(s); M79.642 Pain in left hand; E78.5 Hyperlipidemia, unspecified
CPT/HCPCS: 72040; 73130

== ENCOUNTER → 2023-05-15 07:42 | Outpatient (CLI) | payer OTHER, SELFPAY ==
--- NOTE | 2023-05-16 14:47 | DI.NM.S_ITS ---
DATE OF SERVICE: 05/15/2023 PROCEDURE: Exercise stress test. INDICATIONS: Chest pain. CARDIAC STRESS: The patient underwent exercise stress test under the supervision of an attending staff. The patient walked on Yousif protocol for 12 minutes and achieved 12.8 METS of workload, RYAN -3%, 96% of target heart rate with maximum heart rate 169. Normal blood pressure response. Resting blood pressure 122/80 and peak blood pressure 187/78 mmHg. Baseline rhythm sinus. During stress, no convincing ischemic changes seen. Rare PVCs. No chest pain or anginal symptoms. The patient felt some fatigue and shortness of breath. CONCLUSION: Exercise stress test is negative for inducible ischemia. Good exercise tolerance. Normal hemodynamic response. No significant arrhythmias or anginal symptoms. Overall, low-risk exercise stress test. Jaswant Maninder - DIPESH/jayme/MILTON doc#: [id number]/job#: [id number] dd: 05/15/2023 17:08:00 dt: 05/15/2023 22:15:00 DICTATING /COPIES TO: Coy Davidson MD COPIES MNE: INOCENCIO;
== END ==
PROVIDERS: Family Provider Family Medicine; PCP Family Medicine; Referring Provider Family Medicine; Visit Provider Family Medicine
DX: R00.2 Palpitations (principal)
CPT/HCPCS: 93005; 93017

== ENCOUNTER → 2023-05-25 06:43 | Outpatient (CLI) | payer OTHER, SELFPAY ==
--- NOTE | 2023-05-25 06:43 | DI.ECHO.S_ITS ---
[facility] +---------+ : : [address] [facility] : : : : [id number] : : : : Phone: [phone]+ Echocardiogram Report + + :Name: HOWIE NELSON Study Date: 05/25/2023 Height: 71 in : :[facility] ReadingLocation: Weight: 220 lb : : Gender: Male BSA: 2.2 m2 : :: 1980 Age: 42 yrs BP: 133/87 mmHg: :Reason For Study: EXERTIONAL CHEST PAIN : :Ordering Physician: PATITO, : :MELANIE Performed By: Karan Esqueda : :Referring: MELANIE CAPUTO : + + Interpretation Summary The ejection fraction is estimated to be 60-65%. Left ventricular wall motion is normal. There is no significant valvular heart disease. Procedure: A two-dimensional transthoracic echocardiogram with color flow and Doppler was performed. The study quality was technically adequate. There is no prior echocardiogram noted for this patient. The patient was in normal sinus rhythm during the exam. The heart rate ranged between 74-84 bpm during the study. Left Ventricle: The left ventricle is normal in size and wall thickness. The ejection fraction is estimated to be 60-65%. Left ventricular wall motion is normal. Right Ventricle: The right ventricle is normal in size and function. The right ventricular systolic function is normal. Atria: The left atrial size is normal. Right atrial size is normal. Mitral Valve: The mitral valve is normal in structure and function. There is no mitral valve stenosis. There is no mitral regurgitation noted. Aortic Valve: The aortic valve is trileaflet. There is no aortic valve stenosis. No aortic regurgitation is present. Tricuspid Valve: The tricuspid valve is normal in structure and function. There is no tricuspid stenosis. There is trace tricuspid regurgitation. The right ventricular systolic pressure is estimated to be at least 14 mmHg based on an estimated right atrial pressure of 3 mm Hg. Pulmonic Valve: The pulmonic valve is not well visualized. There is no pulmonic valvular stenosis. There is no pulmonic valvular regurgitation. Great Vessels: The aortic root is normal size. The dimensions of the ascending aorta are normal. The IVC is of normal diameter and collapses greater than 50% with a sniff. This suggests a low right atrial pressure of 3 mm Hg. Pericardium/ Pleura There is no pericardial effusion. There is no pleural effusion. MMode/2D Measurements & Calculations LVIDd: 4.9 cm LVOT diam: 2.2 cm LVIDs: 2.9 cm Ao root diam: 2.9 cm FS: 41.6 % asc Aorta Diam: 3.3 cm IVSd: 1.1 cm Ao Arch Diam (Prox Trans): 2.5 cm LVPWd: 0.83 cm LV de la fuente. diameter/BSA (cm/m^2): 2.3 LV sys. diameter/BSA (cm/m^2): 1.3 LA A2 area: 11.5 cm2 RA long axis: 4.8 cm LA A4 area: 13.6 cm2 RA area: 17.9 cm2 LA length (vol): 4.4 cm RA vol: 57.0 ml LA vol: 30.0 ml RA : 26.0 ml/m2 LA vol index: 13.7 ml/m2 IVC diam: 1.7 cm RVD1 (basal): 3.4 cm RVD2 (mid): 2.7 cm TAPSE: 2.5 cm Doppler Measurements & Calculations Ao V2 max: 110.9 cm/sec LVOT Max Larry: 98.3 cm/sec Ao V2 mean: 83.2 cm/sec LV V1 max P.9 mmHg Ao max P.9 mmHg LV V1 VTI: 22.4 cm Ao mean P.0 mmHg ZAID(I,D): 3.4 cm2 Ao V2 VTI: 24.7 cm ZAID(V,D): 3.3 cm2 sev ratio: 0.91 ZAID indexed to BSA (cm^2/m^2): 1.6 MV E max larry: 68.3 cm/sec TR max larry: 166.2 cm/sec MV A max larry: 62.6 cm/sec TR max P.0 mmHg MV E/A: 1.1 PA V2 max: 76.4 cm/sec Med Peak E' Larry: 7.6 cm/sec PA V2 mean: 55.7 cm/sec E/E' med: 9.0 PA mean P.4 mmHg Lat Peak E' Larry: 12.4 cm/sec PA pr(Accel): 43.0 mmHg E/E' lat: 5.5 E/e' average: 7.3 MV dec time: 0.16 sec SV(LVOT): 84.3 ml Reading Physician:10:13 AM
== END ==
LOC: ECHO 06:43
PROVIDERS: Family Provider Family Medicine; PCP Family Medicine; Referring Provider Family Medicine; Visit Provider Family Medicine
DX: R07.89 Other chest pain (principal); E78.5 Hyperlipidemia, unspecified
CPT/HCPCS: 93306

== ENCOUNTER → 2023-07-31 07:00 | Outpatient (CLI) | payer OTHER, SELFPAY ==
[2023-07-31 08:52] LABS: Alanine Aminotransferase 37 IU/L (<50); Albumin 4.5 g/dL (3.5-5.0); Albumin Globulin Ratio 1.6 (1.0-2.8); Alkaline Phosphatase 44 U/L (38-126); Aspartate Aminotransferase 38 IU/L (17-59); BUN Creatinine Ratio 14.5 (6-22); Bilirubin Total 0.8 mg/dL (0.2-1.3); Blood Urea Nitrogen 16 mg/dL (9-20); Calcium 9.7 mg/dL (8.4-10.2); Carbon Dioxide 27 mmol/L (22-32); Chloride 106 mmol/L (98-107); Cholesterol 165 mg/dL (140-199); Estimated Glomerular Filt Rate > 60 mL/min (>60); Globulin 2.8 g/dL (1.7-4.1); Glucose 101 mg/dL (70-100); HDL Cholesterol 55 mg/dL (40-60); HEMOLYSIS < 15 (0-50); LDL Cholesterol Calculated 93 mg/dL (<100); Potassium 4.3 mmol/L (3.4-5.1); Sodium 139 mmol/L (137-145); Total Protein 7.3 g/dL (6.3-8.2); Triglycerides 87 mg/dL (35-150)
[2023-08-01 06:08] LABS: Apolipoprotein B 84 mg/dL (<90)
== END ==
PROVIDERS: Family Provider Family Medicine; PCP Family Medicine; Referring Provider Family Medicine; Visit Provider Family Medicine
DX: E78.5 Hyperlipidemia, unspecified (principal); I51.9 Heart disease, unspecified; R07.9 Chest pain, unspecified
CPT/HCPCS: 36415; 80053; 80061; 82172; 83695

== ENCOUNTER → 2023-10-27 10:43 | Outpatient (CLI) | payer BC, SELFPAY ==
[2023-10-27 11:24] LABS: Hemoglobin A1C% w Est Avg Glu 5.8 % (4.0-6.0)
[2023-10-27 11:29] LABS: Alanine Aminotransferase 45 IU/L (<50); Albumin 4.6 g/dL (3.5-5.0); Albumin Globulin Ratio 1.5 (1.0-2.8); Alkaline Phosphatase 39 U/L (38-126); Aspartate Aminotransferase 35 IU/L (17-59); BUN Creatinine Ratio 11.5 (6-22); Bilirubin Total 0.8 mg/dL (0.2-1.3); Blood Urea Nitrogen 13 mg/dL (9-20); Calcium 9.7 mg/dL (8.4-10.2); Carbon Dioxide 30 mmol/L (22-32); Chloride 106 mmol/L (98-107); Estimated Glomerular Filt Rate > 60 mL/min (>60); Glucose 107 mg/dL (70-100); HEMOLYSIS < 15 (0-50); Potassium 4.3 mmol/L (3.4-5.1); Sodium 140 mmol/L (137-145); Total Protein 7.6 g/dL (6.3-8.2)
== END ==
PROVIDERS: Family Provider Family Medicine; PCP Family Medicine; Referring Provider Family Medicine; Visit Provider Family Medicine
DX: E78.5 Hyperlipidemia, unspecified (principal); R73.01 Impaired fasting glucose
CPT/HCPCS: 36415; 80053; 83036

== ENCOUNTER → 2024-03-13 14:55 | Outpatient (CLI) | payer OTHER, SELFPAY ==
[2024-03-13 16:26] LABS: Bilirubin Urine UA NEGATIVE (NEGATIVE); Color Urine UA YELLOW; Glucose Urine UA NEGATIVE (Negative); Ketones Urine UA NEGATIVE (NEGATIVE); Leukocyte Esterase Urine UA NEGATIVE (NEGATIVE); Nitrite Urine UA NEGATIVE (Negative); Occult Blood Urine UA 1+ (Negative); Protein Urine UA 1+ (Negative); Specific Gravity Urine UA >=1.030 (1.000-1.035); Urobilinogen Urine UA 0.2 E.U./dL (0.2); pH Urine UA 5.5 (4.5-8.0)
[2024-03-13 16:37] LABS: Appearance Urine UA CLOUDY; RBC Urine 5-10/HPF (0-5/HPF); Urine Volume 10mL (spun); WBC Urine 0-1/HPF (0-5/HPF)
[2024-03-13 16:38] LABS: Bacteria Urine Occasional (0-1); Culture Indicated Urine Cult Not Indicated; Mucus Urine 2+ (Negative); Renal Epithelial Cells Urine 5-10/HPF (0-1/HPF); Squamous Epithelial Cell Urine 1-5 /HPF (0-5/HPF); Transitional Epi Cells Urine 5-10/HPF (0-5/HPF)
== END ==
PROVIDERS: Family Provider Family Medicine; PCP Family Medicine; Visit Provider Physician Assistant Medical
DX: R31.9 Hematuria, unspecified (principal)
CPT/HCPCS: 81001

== ENCOUNTER 2024-04-30 08:34 | Emergency (ER) | payer OTHER, SELFPAY ==
[2024-04-30 08:45] VITALS: PULSE 101; RESP 22; O2SAT 98
[2024-04-30 08:49] VITALS: BP 113/72; PULSE 94; RESP 20; TEMP 37.1; O2SAT 95; BMI 29.2
--- NOTE | 2024-04-30 08:56 | DI.RAD.S_ITS ---
PROCEDURE: XR CHEST 1V INDICATIONS: cough TECHNIQUE: One view of the chest was acquired. COMPARISON: None. FINDINGS: Surgical changes and devices: None. Lungs and pleura: Increased bronchovascular markings in bilateral hilar region are seen with mild bronchial wall thickening. No definite focal infiltrate. No pleural effusions or pneumothorax. Mediastinum: Mediastinal contours appear normal. Heart size is normal. Bones and chest wall: No suspicious bony lesions. Overlying soft tissues appear unremarkable. IMPRESSION: Suggestion of reactive airway disease such as bronchitis or viral illness. No definite focal infiltrate. No pleural effusion or pneumothorax. Dictated by: Carlos Cadet M.D. on 04/30/2024 at 9:10 Approved by: Carlos Cadet M.D. on 04/30/2024 at 9:10
--- NOTE | 2024-04-30 08:57 | ED_ITS ---
HPI - URI/Sore Throat General Chief Complaint: Upper Respiratory Symptoms Stated Complaint: Trouble breathing; hx of cardiac issues Time Seen by Provider: 04/30/24 08:43 Source: patient Mode of arrival: Wheelchair History of Present Illness HPI Narrative: Patient here with . Complains cough cold congestion body aches chills headache/bitemporal headache, no neck pain., complaints of reproducible sternal chest pain with deep breath and coughing. Son has been sick with upper respiratory symptoms. Patient had normal stress test 1 year ago. Done here. Related Data Home Medications Medication Instructions Recorded Confirmed multivitamin 1 tab PO DAILY 02/09/24 03/13/24 Previous Rx's Medication Instructions Recorded citalopram 20 mg tablet (Celexa) 40 mg (2 x 20 mg) PO DAILY #180 02/17/24 tabs rosuvastatin 10 mg tablet 10 mg PO DAILY #90 tabs 02/17/24 sulfamethoxazole 800 1 tab PO BID #20 tabs 03/13/24 mg-trimethoprim 160 mg tablet (Bactrim DS) tamsulosin 0.4 mg capsule (Flomax) 0.4 mg PO DAILY #7 caps 03/13/24 atomoxetine 40 mg capsule 40 mg PO BID #60 caps 03/22/24 benzonatate 100 mg capsule 100 mg PO TID PRN cough #20 caps 04/30/24 Allergies Allergy/AdvReac Type Severity Reaction Status Date / Time No Known Drug Allergies Allergy Verified 03/13/24 14:47 Review of Systems Review of Systems Narrative: GENERAL: Positive chills, fatigue, malaise, fever, sweats. HEENT: Negative sinus pain, ear pain, sore throat RESPIRATORY: Negative dyspnea, positive cough CARDIOVASCULAR: Negative chest pain, palpitations GASTROINTESTINAL: Negative nausea, vomiting, abdominal pain : Negative dysuria, frequency, hematuria MUSCULOSKELETAL: Positive muscle or bony pain SKIN: Negative rash, skin lesions NEUROLOGIC: Negative weakness, numbness ROS Unobtainable: All systems reviewed & are unremarkable except as noted in HPI and below Patient History Medical History (Updated 04/30/24 @ 09:55 by Prem Pop MD) ADHD, predominantly inattentive type Anxiety disorder, unspecified MDD (major depressive disorder), recurrent episode, moderate Epididymal cyst Hyperlipidemia Anxiety and depression BMI 30.0-30.9,adult Osteoarthritis of right knee No active medical problems Surgical History Anesthesia History of colonoscopy History of endoscopy (~2006) Family History Father OCD (obsessive compulsive disorder) Mother Substance abuse Hypochondria Grandmother Cancer Grandmother History of blood disorder Social History Smoking Status: Never smoker Smoking Status: Never smoker Exam Narrative Exam Narrative: GENERAL: in no distress, not toxic not dyspneic HEAD: Normocephalic. EYES: Pupils equal round ENT: Mucous membranes moist. NECK: Trachea midline. CARDIOVASCULAR: Regular rate and rhythm RESPIRATORY: Patient in no respiratory distress. Not dyspneic. Has slightly diminished lung sounds at the bases. Speaking full sentences. Has reproducible sternal tenderness on palpation and coughing and deep breath. GASTROINTESTINAL: Abdomen soft, non-tender EXTREMITIES: No gross deformities. BACK: No flank tenderness. NEURO: AOx4. SKIN: Warm and dry PSYCH: Not anxious, is cooperative Initial Vital Signs Initial Vital Signs: Vital Signs Pulse Rate 101 H 04/30/24 08:45 Respiratory Rate 22 04/30/24 08:45 Pulse Oximetry 98 04/30/24 08:45 Course Orders Ordered: Discontinued Medications Acetaminophen (Acetaminophen 325 Mg Tablet) 975 mg PO NOW ONE Stop: 04/30/24 08:57 Last Admin: 04/30/24 09:31 Dose: 975 mg Documented By: CTS Benzonatate (Benzonatate 100 Mg Capsule) 100 mg PO NOW ONE Stop: 04/30/24 08:57 Last Admin: 04/30/24 09:31 Dose: 100 mg Documented By: CTS Sodium Chloride (Normal Saline 0.9%) 1,000 mls @ 1,000 mls/hr IV BOLUS ONE Stop: 04/30/24 09:55 Last Admin: 04/30/24 09:31 Dose: 1,000 mls/hr Documented By: CTS Ketorolac Tromethamine (Ketorolac 30 Mg/Ml Vial) 15 mg IV NOW ONE Stop: 04/30/24 08:57 Last Admin: 04/30/24 09:31 Dose: 15 mg Documented By: CTS Vital Signs Vital signs: Vital Signs - 8 hr 04/30/24 08:49 Temperature 98.8 F Pulse Rate 94 H Respiratory Rate 20 Blood Pressure 113/72 Pulse Oximetry 95 Oxygen Delivery Method Room Air [facility] - URI/Sore Throat Lab Data 04/30/24 09:20 04/30/24 09:20 Labs: Lab Results 04/30/24 04/30/24 Range/Units 08:45 09:20 WBC 6.1 (4.5-11.0) X10^3/uL RBC 5.24 (4.5-5.9) X10^6/uL Hgb 14.0 (13.5-17.5) g/dL Hct 41.5 (41-53) % MCV 79.1 L (80-100) fL MCH 26.6 (26-34) PG MCHC 33.6 (30-36) % RDW 14.1 (11.6-14.8) % Plt Count 201 (150-400) X10^3/uL Neut % (Auto) 82.7 H (50-75) % Lymph % (Auto) 8.2 L (25-40) % [place] % (Auto) 8.1 (3-14) % Eos % (Auto) 0.0 L (2-4) % Baso % (Auto) 1.0 (0-2) % Neut # (Auto) 5100 (0769-5231) /uL Lymph # (Auto) 500 L (0294-3281) /uL [place] # (Auto) 500 (0-900) /uL Eos # (Auto) 0 (0-450) /uL Baso # (Auto) 100 (0-100) /uL Sodium 138 (137-145) mmol/L Potassium 4.0 (3.4-5.1) mmol/L Chloride 102 (98-107) mmol/L Carbon Dioxide 29 (22-32) mmol/L BUN 13 (9-20) mg/dL Creatinine 1.37 H (0.66-1.25) mg/dL Estimated GFR > 60 (>60) mL/min BUN/Creatinine Ratio 9.5 (6-22) Glucose 115 H (70-100) mg/dL Calcium 9.5 (8.4-10.2) mg/dL Total Bilirubin 1.1 (0.2-1.3) mg/dL AST 37 (17-59) IU/L ALT 40 (<50) IU/L Alkaline Phosphatase 41 (38-126) U/L Total Protein 8.0 (6.3-8.2) g/dL Albumin 4.6 (3.5-5.0) g/dL Globulin 3.4 (1.7-4.1) g/dL Albumin/Globulin Ratio 1.4 (1.0-2.8) SARS-CoV-2 (PCR) Negative (Negative) Influenza A (RT-PCR) Flu a positive H (NEGATIVE) Influenza B (RT-PCR) Flu b negative (NEGATIVE) RSV (PCR) Negative (Negative) [facility] Narrative Medical decision making narrative: Patient here with . Complains cough cold congestion body aches chills headache/bitemporal headache, no neck pain., complaints of reproducible sternal chest pain with deep breath and coughing. Son has been sick with upper respiratory symptoms. Patient had normal stress test 1 year ago. Done here. After history and exam, exam is reassuring. Patient has reproducible sternal chest tenderness pain with palpation and deep breath and cough, no EKG troponin at this time. CBC CMP normal saline Toradol Tylenol Tessalon Perles chest x-ray has been ordered. Respiratory panel as well. [facility] Medical records reviewed: No recent visit for this complaint Differential considered: Includes but not limited to pneumonia bronchitis RSV rhino virus mycoplasma metapneumovirus influenza Lab Test results independently reviewed as above. Pertinent findings: Positive influenza WBC 6.1 Imaging studies independently reviewed: Chest x-ray no acute finding Consultations: None indicated Treatments: Toradol Tylenol normal saline Tessalon Perles Re-evaluations: 9:53 a.m.. Patient feeling much better after medications fluids. He does not want Tamiflu for testing positive influenza. Work note provided. Return precautions reviewed he sees primary care doctor [place]. He desires discharge home. Discussion: Appropriate for discharge home exam is reassuring. Return precautions reviewed. Vital signs are reassuring. He desires discharge home Diagnosis: Influenza Discharge Plan Departure Patient Disposition: Home Clinical Impression: Influenza Instructions: DI for Influenza -- Adult Activity Restrictions/Additional Instructions: You have tested positive for the flu. No antibiotics are indicated. Cough medication prescription has been sent to your pharmacy to continue today. See family doctor in a week for re-evaluation. Return if worse if any questions or concerns. Keep well hydrated. Continue Tylenol or ibuprofen for pain. Prescriptions: New benzonatate 100 mg capsule 100 mg PO TID PRN (Reason: cough) Qty: 20 0RF No Action tamsulosin [Flomax] 0.4 mg capsule 0.4 mg PO DAILY Qty: 7 0RF sulfamethoxazole-trimethoprim [Bactrim DS] 800-160 mg tablet 1 tab PO BID Qty: 20 0RF multivitamin Tablet 1 tab PO DAILY atomoxetine 40 mg capsule 40 mg PO BID Qty: 60 2RF citalopram [Celexa] 20 mg tablet 40 mg PO DAILY Qty: 180 2RF rosuvastatin 10 mg tablet 10 mg PO DAILY Qty: 90 1RF Referrals: Kody Padilla MD [Primary Care Provider] - Stand Alone Forms: Patient Portal/API/Survey, Work Release Note
[2024-04-30 09:00] VITALS: BP 125/78; PULSE 96; RESP 22; O2SAT 98
[2024-04-30 09:19] VITALS: BP 116/67; PULSE 106; RESP 28; O2SAT 96
[2024-04-30 09:30] VITALS: BP 125/74; PULSE 101; RESP 16; O2SAT 96
[2024-04-30] MEDS: ACETAMINOPHEN 325 MG TABLET 975 MG PO (09:31)
[2024-04-30] MEDS: KETOROLAC 30 MG/ML VIAL 15 MG IV (09:31)
[2024-04-30] MEDS: SODIUM CHLORIDE 0.9% 1,000 ML 1000 ML IV (09:31)
[2024-04-30] MEDS: BENZONATATE 100 MG CAPSULE PO (09:31)
[2024-04-30 09:42] LABS: Add Manual Diff / Slide Review NO; Basophils Absolute Auto 100 /uL (0-100); Eosinophils Absolute Auto 0 /uL (0-450); Hematocrit 41.5 % (41-53); Lymphocytes Absolute Auto 500 /uL (1100-4500); Lymphocytes Percent Auto 8.2 % (25-40); Mean Corpuscular HGB Conc 33.6 % (30-36); Mean Corpuscular Hemoglobin 26.6 PG (26-34); Mean Corpuscular Volume 79.1 fL (80-100); Monocytes Absolute Auto 500 /uL (0-900); Monocytes Percent Auto 8.1 % (3-14); Neutrophils Absolute Auto 5100 /uL (1500-7000); Neutrophils Percent Auto 82.7 % (50-75); Platelet Count 201 X10^3/uL (150-400); Red Blood Cell Count 5.24 X10^6/uL (4.5-5.9); Red Cell Distribution Width 14.1 % (11.6-14.8); White Blood Cell Count 6.1 X10^3/uL (4.5-11.0)
[2024-04-30 09:43] LABS: Influenza A - CEPHEID Flu A POSITIVE (NEGATIVE); Influenza B - CEPHEID Flu B NEGATIVE (NEGATIVE); Respiratory Syncytial Virus Negative (Negative)
[2024-04-30 09:44] LABS: COVID-19 CEPHEID 4-PLEX PCR Negative (Negative)
[2024-04-30 09:47] LABS: Alanine Aminotransferase 40 IU/L (<50); Albumin 4.6 g/dL (3.5-5.0); Albumin Globulin Ratio 1.4 (1.0-2.8); Alkaline Phosphatase 41 U/L (38-126); Aspartate Aminotransferase 37 IU/L (17-59); BUN Creatinine Ratio 9.5 (6-22); Bilirubin Total 1.1 mg/dL (0.2-1.3); Blood Urea Nitrogen 13 mg/dL (9-20); Calcium 9.5 mg/dL (8.4-10.2); Carbon Dioxide 29 mmol/L (22-32); Chloride 102 mmol/L (98-107); Estimated Glomerular Filt Rate > 60 mL/min (>60); Globulin 3.4 g/dL (1.7-4.1); Glucose 115 mg/dL (70-100); HEMOLYSIS < 15 (0-50); Sodium 138 mmol/L (137-145)
[2024-04-30 10:00] VITALS: BP 122/73; PULSE 95; RESP 26; O2SAT 95
== END 2024-04-30 10:09 | disposition home or self-care (01) ==
PROVIDERS: Emergency Provider Emergency Medicine; Family Provider Family Medicine; PCP Family Medicine
DX: J10.1 Influenza due to other identified influenza virus with other respiratory manifestations (principal); R07.89 Other chest pain; E78.5 Hyperlipidemia, unspecified
CPT/HCPCS: 0241U; 36415; 71045; 80053; 85025; 96374; 99284; J1885

== ENCOUNTER → 2024-06-21 16:43 | Outpatient (CLI) | payer OTHER, SELFPAY ==
--- NOTE | 2024-06-21 16:44 | DI.RAD.S_ITS ---
PROCEDURE: XR SHOULDER RT MIN 2V INDICATIONS: Shoulder pain TECHNIQUE: 3 views of the shoulder were acquired. COMPARISON: None. FINDINGS: Bones: No fractures or dislocations. No suspicious bony lesions. Visualized ribs appear intact. Soft tissues: No suspicious soft tissue calcifications. IMPRESSION: No acute bony abnormality. Dictated by: Burton Dixon M.D. on 06/21/2024 at 17:13 Approved by: Burton Dixon M.D. on 06/21/2024 at 17:13
== END ==
PROVIDERS: Family Provider Family Medicine; PCP Family Medicine; Referring Provider Physician Assistant; Visit Provider Physician Assistant
DX: M25.519 Pain in unspecified shoulder (principal)
CPT/HCPCS: 73030

== ENCOUNTER → 2024-06-23 10:57 | Outpatient (CLI) | payer OTHER, SELFPAY ==
[2024-06-23 11:54] LABS: Influenza A - CEPHEID Flu A NEGATIVE (NEGATIVE); Influenza B - CEPHEID Flu B NEGATIVE (NEGATIVE); Respiratory Syncytial Virus Negative (Negative)
[2024-06-23 12:01] LABS: COVID-19 CEPHEID 4-PLEX PCR Negative (Negative)
== END ==
PROVIDERS: Family Provider Family Medicine; PCP Family Medicine; Visit Provider Registered Nurse
DX: R05.9 Cough, unspecified (principal); R52 Pain, unspecified
CPT/HCPCS: 87635; 87400 ×2; 87420; 0241U

== ENCOUNTER → 2024-08-17 07:44 | Outpatient (CLI) | payer OTHER, SELFPAY ==
[2024-08-17 09:20] LABS: Hemoglobin A1C% w Est Avg Glu 5.5 % (4.0-6.0)
== END ==
PROVIDERS: Family Provider Family Medicine; PCP Family Medicine; Referring Provider Family Medicine; Visit Provider Family Medicine
DX: R73.01 Impaired fasting glucose (principal)
CPT/HCPCS: 36415; 83036

== ENCOUNTER → 2024-09-02 07:39 | Outpatient (CLI) | payer OTHER, SELFPAY ==
[2024-09-02 08:02] LABS: Appearance Urine UA CLEAR; Bilirubin Urine UA NEGATIVE (NEGATIVE); Color Urine UA YELLOW; Glucose Urine UA NEGATIVE (Negative); Ketones Urine UA NEGATIVE (NEGATIVE); Leukocyte Esterase Urine UA NEGATIVE (NEGATIVE); Nitrite Urine UA NEGATIVE (Negative); Occult Blood Urine UA NEGATIVE (Negative); Protein Urine UA NEGATIVE (Negative); Specific Gravity Urine UA 1.025 (1.000-1.035); Urobilinogen Urine UA 0.2 E.U./dL (0.2)
[2024-09-02 08:09] LABS: Urine Volume 10mL (spun)
[2024-09-02 08:10] LABS: Bacteria Urine None Seen; Culture Indicated Urine Cult Not Indicated; RBC Urine None Seen (0-5/HPF); Squamous Epithelial Cell Urine None Seen (0-5/HPF); WBC Urine None Seen (0-5/HPF)
[2024-09-02 08:18] LABS: Add Manual Diff / Slide Review NO; Basophils Absolute Auto 0 /uL (0-100); Basophils Percent Auto 0.8 % (0-2); Eosinophils Absolute Auto 200 /uL (0-450); Eosinophils Percent Auto 3.3 % (2-4); Hematocrit 43.3 % (41-53); Hemoglobin 14.3 g/dL (13.5-17.5); Lymphocytes Absolute Auto 1800 /uL (1100-4500); Mean Corpuscular HGB Conc 33.1 % (30-36); Mean Corpuscular Hemoglobin 26.2 PG (26-34); Mean Corpuscular Volume 79.2 fL (80-100); Monocytes Absolute Auto 500 /uL (0-900); Monocytes Percent Auto 8.3 % (3-14); Neutrophils Absolute Auto 3200 /uL (1500-7000); Neutrophils Percent Auto 55.6 % (50-75); Platelet Count 249 X10^3/uL (150-400); Red Blood Cell Count 5.46 X10^6/uL (4.5-5.9); Red Cell Distribution Width 14.9 % (11.6-14.8); White Blood Cell Count 5.7 X10^3/uL (4.5-11.0)
[2024-09-02 08:54] LABS: Alanine Aminotransferase 38 IU/L (<50); Albumin 4.6 g/dL (3.5-5.0); Albumin Globulin Ratio 1.6 (1.0-2.8); Alkaline Phosphatase 41 U/L (38-126); Aspartate Aminotransferase 33 IU/L (17-59); BUN Creatinine Ratio 10.6 (6-22); Blood Urea Nitrogen 12 mg/dL (9-20); Carbon Dioxide 30 mmol/L (22-32); Chloride 102 mmol/L (98-107); Cholesterol 191 mg/dL (140-199); Estimated Glomerular Filt Rate > 60 mL/min (>60); Globulin 2.8 g/dL (1.7-4.1); Glucose 110 mg/dL (70-99); HDL Cholesterol 61 mg/dL (40-60); HEMOLYSIS < 15 (0-50); LDL Cholesterol Calculated 105 mg/dL (<100); Potassium 4.8 mmol/L (3.4-5.1); Sodium 138 mmol/L (137-145); Total Protein 7.4 g/dL (6.3-8.2); Triglycerides 126 mg/dL (35-150)
[2024-09-02 09:25] LABS: TSH w/ Reflex to FT4 2.36 uIU/mL (0.47-4.68)
[2024-09-02 09:27] LABS: Prostate Specific Antigen Scrn 2.34 ng/mL (0.1-4.0)
[2024-09-03 05:14] LABS: Apolipoprotein B 86 mg/dL (<90)
== END ==
PROVIDERS: Family Provider Family Medicine; PCP Family Medicine; Referring Provider Family Medicine; Visit Provider Family Medicine
DX: Z12.5 Encounter for screening for malignant neoplasm of prostate (principal); F90.0 Attention-deficit hyperactivity disorder, predominantly inattentive type; F41.9 Anxiety disorder, unspecified; R68.82 Decreased libido; E78.5 Hyperlipidemia, unspecified; F33.1 Major depressive disorder, recurrent, moderate; R31.9 Hematuria, unspecified
CPT/HCPCS: 36415; 80053; 80061; 81001; 82172; 84402; 84403; 84443; 85025; G0103

== ENCOUNTER → 2024-10-28 10:51 | Outpatient (CLI) | payer OTHER, SELFPAY ==
[2024-10-28 11:58] LABS: Appearance Urine UA CLEAR; Bilirubin Urine UA NEGATIVE (NEGATIVE); Color Urine UA YELLOW; Glucose Urine UA NEGATIVE (Negative); Ketones Urine UA NEGATIVE (NEGATIVE); Leukocyte Esterase Urine UA NEGATIVE (NEGATIVE); Nitrite Urine UA NEGATIVE (Negative); Occult Blood Urine UA NEGATIVE (Negative); Protein Urine UA NEGATIVE (Negative); Specific Gravity Urine UA 1.020 (1.000-1.035); Urobilinogen Urine UA 1.0 E.U./dL (0.2); pH Urine UA 6.0 (4.5-8.0)
[2024-10-28 12:04] LABS: Culture Indicated Urine Cult Not Indicated
[2024-10-28 13:13] LABS: Vitamin B12 670 pg/mL (239-931)
== END ==
PROVIDERS: PCP Family Medicine; Referring Provider Family Medicine; Visit Provider Family Medicine
DX: R20.2 Paresthesia of skin (principal); N50.89 Other specified disorders of the male genital organs; R31.29 Other microscopic hematuria; R68.82 Decreased libido
CPT/HCPCS: 36415; 81001; 82607; 84402; 84403